=== PATIENT | female | born 1970 | race American Indian/Alaskan Native ===

== ENCOUNTER 2017-01-08 10:10 | Emergency (ER) | payer OTHER ==
[2017-01-08 10:16] VITALS: RESP 16
[2017-01-08] MEDS ORDERED: ONDANSETRON 4 MG/2 ML VIAL IVP ONE (10:19)
[2017-01-08] MEDS ORDERED: HYDROmorphONE/DILAUDID 1 MG/ML SYR IVP ONE (10:22)
[2017-01-08 10:35] LABS: % IMMATURE GRANULYOCYTES 0.7 % (0.0-1.1); ABSOLUTE IMMATURE GRANULOCYTES 0.07 10^3/uL (0.00-0.10); ADD DIFF? NO; ADD MORPH? NO; ADD SCAN? NO; ATYPICAL LYMPHOCYTE FLAG 0 (0-99); FRAGMENT RBC FLAG 0 (0-99); HEMOGLOBIN 15.1 g/dL (12.6-16.3); LEFT SHIFT FLG 0 (0-99); LIPEMIA HEMOLYSIS FLAG 90 (0-99); MEAN CELL HEMOGLOBIN 30.8 pg (27.9-34.1); MEAN CELL HEMOGLOBIN CONCENTR. 35.1 g/dL (32.4-36.7); MEAN CELL VOLUME 87.8 fL (81.5-99.8); MEAN PLATELET VOLUME 8.4 fL (8.7-11.7); PLATELET CLUMPS FLAG 0 (0-99); PLATELET COUNT 308 10^3/uL (150-400); RED CELL DISTRIBUTION WIDTH 13.2 % (11.5-15.2)
[2017-01-08 11:03] LABS: ANION GAP 14 mEq/L (8-16); CALCIUM 9.8 mg/dL (8.5-10.4); CARBON DIOXIDE 21 mEq/l (22-31); CHLORIDE 103 mEq/L (97-110); CREATININE 0.7 mg/dL (0.6-1.0); GLOMERULAR FILTRATION RATE > 60; GLUCOSE 102 mg/dL (70-100); SODIUM 138 mEq/L (134-144)
--- NOTE | 2017-01-08 11:06 | EDPHY ---
H & P Stated Complaint: Abdominal pain Time Seen by Provider: 01/08/17 10:57 HPI/ROS: CHIEF COMPLAINT: constipation HISTORY OF PRESENT ILLNESS: 47-year-old female presents emergency department complaining of left-sided abdominal pain and constipation. Patient had a left knee arthroscopy 6 days ago with general anesthesia. Patient reports she has been taking Percocet and hydrocodone intermittently. She has had a 3 day history of increasing intermittent abdominal cramping. Patient took a natural stool softener last night and again this morning. She gave herself an enema this morning with no relief. Patient reports a few small firm bowel movements firm marble size. Patient denies fevers. She reports mild nausea. Patient feels bloated. She denies any knee pain, chest pain or shortness of breath. REVIEW OF SYSTEMS: A comprehensive 10 point review of systems is otherwise negative aside from elements mentioned in the history of present illness. Source: Patient Exam Limitations: No limitations - Personal History LMP (Females 10-55): Post Menopausal Current Tetanus Diphtheria and Acellular Pertussis (TDAP): Yes - Medical/Surgical History Hx Asthma: No Hx Chronic Respiratory Disease: No Hx Diabetes: No Hx Cardiac Disease: No Hx Renal Disease: No Hx Cirrhosis: No Hx Alcoholism: No Hx HIV/AIDS: No Hx Splenectomy or Spleen Trauma: No Other PMH: hysterectomy. breast augmentation. Left knee arthroscopic surg - Social History Smoking Status: Never smoked - Physical Exam Exam: Physical Exam-vital signs reviewed, triage blood pressure elevated, repeat blood pressure is 108/69, temperature is 36.8degrees. Gen: Alert and Oriented, NAD HEENT: PERRL, moist mucous membranes NECK: no meningismus CV: regular rate and regular rhythm PULM: CTAB, no wheezes ABDOMEN: soft, left sided abdominal tenderness to palpation, no rebound tenderness, no peritoneal signs, no masses, BS present : Rectal with no stool in vault BACK: No CVA tenderness NEURO: Neurologically grossly intact EXTREMITIES: normal appearing, left knee with incisions free from drainage, no surrounding erythema SKIN: no rash or break in skin on exposed skin PSYCH: answers questions appropriately. Constitutional: Initial Vital Signs Heart Rate 53 L 01/08/17 10:11 Respiratory Rate 16 01/08/17 10:11 Blood Pressure 160/141 H 01/08/17 10:11 O2 Sat (%) 98 01/08/17 10:11 O2 Delivery Mode Room Air Allergies/Adverse Reactions: latex Allergy (Verified 12/12/14 06:00) Home Medications: Medication Instructions Recorded Flonase 12/12/14 Ondansetron Odt [Zofran Odt] 4 mg PO Q4PRN PRN #10 tab 12/12/14 ZYRTEC 12/12/14 Medical Decision Making ED Course/Re-evaluation: IV established, CBC and chemistry panel obtained that are unremarkable. Patient has constipation after general anesthesia from a left knee scope 6 days ago. She has no evidence of peritonitis. She has left-sided abdominal tenderness. Patient will increase her fluid intake, she was given magnesium citrate in the emergency department and strict return precautions. Patient is comfortable with this plan. Differential Diagnosis: Diagnosis considered but not limited to constipation, small-bowel obstruction, gastroenteritis, adhesions, diverticulitis - Data Points Laboratory Results: Laboratory Results 01/08/17 10:25 01/08/17 10:25 01/08/17 01/08/17 10:25 10:25 WBC 10.41 10^3/uL H 10^3/uL (3.80-9.50) RBC 4.90 10^6/uL 10^6/uL (4.18-5.33) Hgb 15.1 g/dL g/dL (12.6-16.3) Hct 43.0 % % (38.0-47.0) MCV 87.8 fL fL (81.5-99.8) MCH 30.8 pg pg (27.9-34.1) MCHC 35.1 g/dL g/dL (32.4-36.7) RDW 13.2 % % (11.5-15.2) Plt Count 308 10^3/uL 10^3/uL (150-400) MPV 8.4 fL L fL (8.7-11.7) Neut % (Auto) 50.7 % % (39.3-74.2) Lymph % (Auto) 40.1 % % (15.0-45.0) [place] % (Auto) 6.1 % % (4.5-13.0) Eos % (Auto) 1.4 % % (0.6-7.6) Baso % (Auto) 1.0 % % (0.3-1.7) Nucleat RBC Rel Count 0.0 % % (0.0-0.2) Absolute Neuts (auto) 5.29 10^3/uL 10^3/uL (1.70-6.50) Absolute Lymphs (auto) 4.17 10^3/uL H 10^3/uL (1.00-3.00) Absolute Monos (auto) 0.63 10^3/uL 10^3/uL (0.30-0.80) Absolute Eos (auto) 0.15 10^3/uL 10^3/uL (0.03-0.40) Absolute Basos (auto) 0.10 10^3/uL 10^3/uL (0.02-0.10) Absolute Nucleated RBC 0.00 10^3/uL 10^3/uL (0-0.01) Immature Gran % 0.7 % % (0.0-1.1) Immature Gran # 0.07 10^3/uL 10^3/uL (0.00-0.10) Sodium 138 mEq/L mEq/L (134-144) Potassium 4.0 mEq/L mEq/L (3.5-5.2) Chloride 103 mEq/L mEq/L (97-110) Carbon Dioxide 21 mEq/l L mEq/l (22-31) Anion Gap 14 mEq/L mEq/L (8-16) BUN 15 mg/dL mg/dL (7-23) Creatinine 0.7 mg/dL mg/dL (0.6-1.0) Estimated GFR > 60 Glucose 102 mg/dL H mg/dL (70-100) Calcium 9.8 mg/dL mg/dL (8.5-10.4) Medications Given: Discontinued Medications Hydromorphone HCl (Dilaudid) 0.5 mg IVP EDNOW ONE Stop: 01/08/17 10:23 Last Admin: 01/08/17 10:29 Dose: 0.5 mg Magnesium Citrate (Magnesium Citrate) 300 ml PO ONCE ONE Stop: 01/08/17 11:17 Last Admin: 01/08/17 11:26 Dose: 300 ml Ondansetron HCl (Zofran) 4 mg IVP EDNOW ONE Stop: 01/08/17 10:20 Last Admin: 01/08/17 10:29 Dose: 4 mg Departure - Departure Disposition: Home, Routine, Self-Care Clinical Impression: Constipation Qualifiers: Constipation type: unspecified constipation type Qualified Code(s): K59.00 - Constipation, unspecified Condition: Good Instructions: Constipation (ED), High Fiber Diet (ED) Additional Instructions: Drink plenty of fluids, start taking 17 g of MiraLax once a day for 7 days. Avoid constipating foods, see list provided. Return to the emergency department for any fevers, vomiting, new, worsening or changing abdominal pain. Referrals: Christian Hartley MD [Primary Care Provider] - As per Instructions
[2017-01-08] MEDS ORDERED: MAGNESIUM CITRATE 300 ML BOTTLE PO ONE (11:16)
[2017-01-08 11:31] VITALS: BP 108/79; PULSE 69; TEMP 98.4; O2SAT 96
== END 2017-01-08 11:56 | disposition home or self-care (01) ==
DX: K59.00 Constipation, unspecified (principal); Z91.040 Latex allergy status
CPT/HCPCS: 96374; J1170; J2405

== ENCOUNTER 2017-02-28 20:40 | Emergency (ER) | payer OTHER ==
--- NOTE | 2017-02-28 21:57 | EDPHY ---
H & P Stated Complaint: R neck swelling Time Seen by Provider: 02/28/17 21:49 HPI/ROS: CHIEF COMPLAINT: Right neck pain and swelling HISTORY OF PRESENT ILLNESS: The patient presents to the ED with complaints of pain and swelling noted to her right neck. The patient reports her symptoms began earlier today. She denies recent dental work. The patient denies fever or trismus. The patient denies prior history of any or pharyngeal infections or surgery. The patient reports that she has moderate pain worsened with swallowing. She denies any additional recent infectious symptoms, cough, shortness of breath or other acute complaints. REVIEW OF SYSTEMS: A comprehensive 10 point review of systems is otherwise negative aside from elements mentioned in the history of present illness. Source: Patient Exam Limitations: No limitations - Personal History LMP (Females 10-55): Hysterectomy Current Tetanus/Diphtheria Vaccine: Unsure Current Tetanus Diphtheria and Acellular Pertussis (TDAP): Unsure - Medical/Surgical History Hx Asthma: Yes Hx Chronic Respiratory Disease: No Hx Diabetes: No Hx Cardiac Disease: No Hx Renal Disease: No Hx Cirrhosis: No Hx Alcoholism: No Hx HIV/AIDS: No Hx Splenectomy or Spleen Trauma: No Other PMH: hysterectomy. breast augmentation. Left knee arthroscopic surg - Social History Smoking Status: Never smoked - Physical Exam Exam: General Appearance: Alert, no distress Eyes: Pupils equal and round no pallor or injection ENT, Mouth: Tenderness to palpation in the right submandibular area with what feels to be a large lymph node verses abscess Respiratory: There are no retractions, lungs are clear to auscultation Cardiovascular: Regular rate and rhythm Gastrointestinal: Abdomen is soft and nontender, no masses, bowel sounds normal Neurological: A&O, normal motor function, normal sensory exam, normal cranial nerves Skin: Warm and dry, no rashes Musculoskeletal: Neck is supple nontender Extremities: symmetrical, full range of motion Constitutional: Initial Vital Signs Temperature (C) 36.8 C 02/28/17 20:56 Heart Rate 55 L 02/28/17 20:56 Respiratory Rate 16 02/28/17 20:56 Blood Pressure 116/76 02/28/17 20:56 O2 Sat (%) 96 02/28/17 20:56 O2 Delivery Mode Room Air Allergies/Adverse Reactions: codeine Allergy (Verified 02/28/17 20:55) latex Allergy (Verified 03/14/15 06:00) Home Medications: Medication Instructions Recorded Flonase 12/12/14 ZYRTEC 12/12/14 Albuterol 02/28/17 Amoxicillin/Clavulanate Pot 875 mg PO BID #20 tab 02/28/17 [Augmentin 875 mg tablet] Medical Decision Making - Diagnostics Imaging Results: Imaging Impressions Neck CT 02/28/17 22:12 Impression: Sialosis; 2 mm calculus in the Andrew's duct of the right submandibular gland with associated mild enlargement of the right submandibular gland. Results called and discussed with Raffi Marti M.D. on 02/28/2017 at 23:33 CT neck with IV contrast: Images reviewed by myself and discussed with radiologist Dr. John Farley. Evidence of a right submandibular stone is noted. There is some submandibular gland inflammation. There is no evidence of an obvious abscess or vascular malformation. ED Course/Re-evaluation: The patient presents to the ED with right-sided submandibular pain and swelling secondary to a retained stone in the submandibular duct. The patient has no fever, erythema or evidence of a significant facial cellulitis. The patient is noted to have evidence of a submandibular stone resulting in submandibular mild swelling inflammation. The patient is well-appearing clinically without evidence of airway compromise. Her vital signs are stable and she is afebrile. The patient will be started on Augmentin. I have asked her to follow up with our on-call ENT physician for a recheck in the next 2-3 days. The patient has been instructed to return to the ED for worsening symptoms, fever, increasing pain, difficulty swallowing or other concerns. The patient has been encouraged to use lemon drops or sour foods to promote salivation. Differential Diagnosis: Differential diagnosis considered includes submandibular abscess, necrotizing fasciitis, lymphadenopathy, vascular injury - Data Points Laboratory Results: 02/28/17 22:03 POC Hgb 14.6 gm/dL gm/dL (12.6-16.3) POC Hct 43 % % (38-47) POC Sodium 141 mEq/L mEq/L (134-144) POC Potassium 4.1 mEq/L mEq/L (3.3-5.0) POC Chloride 103 mEq/L mEq/L (97-110) POC BUN 16 mg/dL mg/dL (7-23) POC Creatinine 0.7 mg/dL mg/dL (0.6-1.0) POC Glucose 93 mg/dL mg/dL (70-100) Point of Care Test Results: 02/28/17 22:03 POC Sodium 141 POC Potassium 4.1 POC Chloride 103 POC BUN 16 POC Creatinine 0.7 POC Glucose 93 Departure - Departure Disposition: Home, Routine, Self-Care Clinical Impression: Submandibular duct obstruction Condition: Good Instructions: Sialoadenitis (ED) Additional Instructions: 1. Please take antibiotics as directed for the next week. 2. Please follow up with the Ear Nose Throat physician you have been referred to for further evaluation of the small stone noted in your submandibular duct. 3. Please return to the ED for markedly worsening pain, fever, difficulty swallowing or other concerns. Referrals: Miguel Perkins MD [Medical Doctor] - As per Instructions Prescriptions: Amoxicillin/Clavulanate Pot [Augmentin 875 mg tablet] 875 mg PO BID #20 tab
[2017-02-28] MEDS ORDERED: IOPAMIDOL (ISOVUE-300) 100 ML BTL ONE (22:29)
[2017-03-01 00:05] VITALS: BP 102/66; PULSE 54; RESP 18; TEMP 97.7; O2SAT 94
== END 2017-03-01 00:03 | disposition home or self-care (01) ==
DX: K11.8 Other diseases of salivary glands (principal); J45.909 Unspecified asthma, uncomplicated; Z91.040 Latex allergy status
CPT/HCPCS: 82947-QW; Q9967

== ENCOUNTER → 2017-04-02 | Outpatient (CLI) | payer OTHER | LOC: FIMAGING 14:30 | PROVIDERS: ATTEND Radiology Diagnostic Radiology | DX: Z12.31 Encounter for screening mammogram for malignant neoplasm of breast (principal) | CPT/HCPCS: G0202 ==